=== PATIENT | female | born 1955 | race Caucasian/White ===

== ENCOUNTER 2023-12-28 12:56 | Outpatient (AMB) | payer MEDICARE, BC, SELFPAY ==
[2023-12-28 13:29] VITALS: BP 120/76; PULSE 84; RESP 19; TEMP 35.7; O2SAT 96; BMI 38.2
--- NOTE | 2023-12-28 13:29 | PD.ORTHCLVIS ---
Vital signs 12/28/23 13:29 Height 1.52 m Height Method Stated Weight 88.507 kg Weight Measurement Method Standing Scale BMI 38.2 BP 120/76 Blood Pressure Source Automatic Cuff Blood Pressure Location Right Upper Arm Position Sitting Respiration 19 Pulse 84 Pulse Source Monitor Temp 96.2 F L Temp Source Temporal Artery Scan Pulse Oximetry (%) 96 Oxygen Delivery Method Room Air Med/Allergies Allergies & Medications Allergies erythromycin base Adverse Reaction (Severe, Verified 12/28/23 13:30) Gastrointestinal Upset Subjective Visit Visit for: follow up visit Immunization / Flu Flu Vaccine in the Last 12 Months: No Flu Vaccine Exclusion Criteria: No Exclusion Criteria History of Present Illness Chief complaint: 4 WEEK FOLLOW UP Kasandra is a pleasant 68-year-old female with right knee pain and right knee arthritis. She had a fall 3 and half weeks ago which exacerbated the issues. She had a cortisone injection which did not help. She is on Plavix and cannot take anti-inflammatories. The pain is actually starting to increase again. Personal History Red flag PMH: none Pain Pain level (0-10): 0 Pain duration: CONSTANT Pain location: inside (medial), outside (lateral), anterior and posterior Pain quality: aching Pain timing: increases with activity Associated signs & symptoms: none Ambulatory data Ambulatory device: none Treatments Improvement with previous injections: No Improvement with PT: No Improvement with NSAIDS: no Review of Systems Review of Systems: All systems negative unless otherwise noted in HPI. Exam Exam Patient is in no acute distress and is cooperative with the examination today. Breathing is nonlabored. Patient has a normal mood and affect. Bilateral extremities were evaluated and demonstrates sensation intact to light touch. Palpable pedal pulses are present. No significant edema is present. Bilateral hips were examined. The patient has no pain with log roll of the hips. Internal rotation to 30 degrees and external rotation to 30 degrees is painless. Negative FADIR. Left knee was examined today. The left knee is in reasonable alignment. Range of motion from 0-120 degrees. Knee is stable to varus and valgus as well as AP translation with <5mm. Patient has a negative McMurrays. There is no pain with patellofemoral compression and no crepitus noted. The knee is nontender to palpation. The right knee was also examined. The right knee is in [varus] alignment. Range of motion from [0-115] degrees. Knee is stable to varus and valgus as well as AP translation with <5mm. Patient has a [negative] McMurrays. There is [no] pain with patellofemoral compression and [no] crepitus noted. The knee is [tender] to palpation [medially]. X-rays demonstrate joint space loss medially. There is arthritis pleasant. Assessment and Plan Problem List (1) Arthritis of right knee: Status: Acute Plan: Kasandra is a pleasant 68-year-old female with right knee pain and right knee arthritis. We discussed nonoperative and operative options. We would like to get weightbearing x-rays to better evaluate the severity. I think it is likely moderate arthritis. We discussed anti-inflammatories which she cannot take. We also discussed Tylenol and Voltaren cream. She would like a right knee cortisone injection. Recommend knee cortisone injection as patient would like to proceed with conservative treatment at this time. The risks and benefits of the procedure were reviewed with the patient and patient gave verbal consent to continue with the procedure. Procedure: performed by Dr. Leahy Using sterile technique the Right knee was thoroughly prepped with alcohol, and approximately 1 cc of Kenalog 40 mg/mL and 4 cc of 1% lidocaine was injected without resistance into the medial tibial femoral joint space. The patient tolerated the procedure. Advanced Care Planning Discussion Advance care planning discussed with:: patient Office Procedures GNS Level of Care Nursing/Assessment Patient Status: Established Patient Nursing Assessment/Reassesment: Medication Reconciliation, Update PMH in EMR and Vital Signs Coordination of Care: Complex Care and Chronic Disease 1-5, Education Complex Pt/Fam, Consent,records obtained, informed consent and Staff clarify orders Established Patient Charge Established Patient Point Assignment: 90 Established Patient Point Charge: EP Level 3 (80-115) Surgical Proc/IM SQ injection Major Surgical Procedure: Yes (KNEE INJECTION) Medication Given Medication Given Medication Given: Yes Documented Dose Given: 4 Route: Infiitration Medication Given Medication Given Medication Given: Yes Documented Dose Given: 1 Route: Infiitration Office Meds Xylocaine 10 mg/mL (1 %) injection solution Performing Provider: Carlos A Leahy MD Performing Location: [facility] Administered by: Carlos A Leahy MD on 12/28/23 13:51 Dose Route Admin Location Dispensed Lot Number Expiration Date 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 20 mL Infiltration 20 mL [id number] 11/04/26 57440-063-59 [employer] triamcinolone acetonide 40 mg/mL suspension for injection Performing Provider: Carlos A Leahy MD Performing Location: [facility] Administered by: Carlos A Leahy MD on 12/28/23 13:51 Dose Route Admin Location Dispensed Lot Number Expiration Date 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 40 mg Infiltration 1 mL [id number] 10/04/25 [address]-4 [employer] Past Medical History Past Medical History Have you ever been diagnosed with any of the following: Neurological Problems Seizures: No Migraine: Yes Cardiology Problems Angina: Yes Coronary Artery Disease: Yes Congestive Heart Failure: No Hypertension: Yes Respiratory Problems Chronic Obstructive Pulmonary Disease (COPD): No Asthma: Yes Bronchitis: Yes Pneumonia: Yes Sleep Apnea: Yes (Pt stated it's not a problem when she sleeps upright) Smoking: No Smoking Exposure: No Stomache/Intestinal Problems Gastroesophageal Reflux Disease: Yes Genital/Urinary Problems Renal Disease: No Reproductive Problems Previous Pregnancies: No Endocrine Problems Diabetes Mellitus Type 1: No Diabetes Mellitus Type 2: Yes Blood Problems Sickle Cell Disease: No Clotting Problems: No Psychologic Problems Depression: No Anxiety: No Other Problems Shingles: Yes Blood Transfusions: No Anesthesia Reactions: No Organ Transplant: No Chicken Pox: Yes Measles: No Mumps: No Cancer: No
== END 2023-12-28 13:57 | disposition home or self-care (01) ==
LOC: HODSRG 12:56
PROVIDERS: PCP Nurse Practitioner Family; Referring Provider Nurse Practitioner Family; Supervising Provider Orthopaedic Surgery Adult Reconstructive Orthopaedic Surgery; Visit Provider Orthopaedic Surgery Adult Reconstructive Orthopaedic Surgery
DX: M17.11 Unilateral primary osteoarthritis, right knee (principal); M25.561 Pain in right knee; I10 Essential (primary) hypertension; I25.10 Atherosclerotic heart disease of native coronary artery without angina pectoris
CPT/HCPCS: 20610; 99213; J3301; J3490; G0463

== ENCOUNTER → 2024-01-26 | Outpatient (CLI) | payer MEDICARE, BC, SELFPAY ==
[2024-01-26 11:36] LABS: Basophils # (Auto) 0.1 Thou/mm3 (0.0-0.2); Basophils % (Auto) 1 % (0-2.5); Eosinophils # (Auto) 0.5 Thou/mm3 (0.0-0.5); Eosinophils % (Auto) 6 % (0-10); Hematocrit 41.2 % (36.0-46.0); Hemoglobin 13.4 g/dL (12.0-16.0); Immature Granulocytes % (Auto) 0 % (0-0); Immature Granulocytes Auto 0.02 Thou/mm3 (0.00-0.00); Lymphocytes # (Auto) 1.7 Thou/mm3 (1.0-4.8); Lymphocytes % (Auto) 18 % (10-50); Mean Corpuscular HGB Conc 32.5 g/dl (31.0-37.0); Mean Corpuscular Volume 89 fL (80-100); Monocytes # (Auto) 0.8 Thou/mm3 (0.0-0.8); Monocytes % (Auto) 8 % (0-12); Neutrophils % (Auto) 67 % (37-80); Nucleated Red Blood Cell % 0 /100 WBC (0); Platelet Count 311 Thou/mm3 (140-440); RDW Standard Deviation 42.1 fL (36.4-46.3); Red Blood Count 4.62 Miln/mm3 (4.00-5.20)
[2024-01-26 11:47] LABS: Glucose Estimated Average 134 mg/dL (80-131); Hemoglobin A1C 6.3 % Hgb (4.8-6.0)
[2024-01-26 11:56] LABS: Alanine Aminotransferase 34 U/L (10-49); Albumin, Serum 4.8 gm/dL (3.4-4.8); Albumin/Globulin Ratio 2.1 (1.2-2.2); Alkaline Phosphatase 67 U/L (46-116); Anion Gap 7 (7-16); Aspartate Amino Transferase 28 U/L (0-34); BUN/Creatinine Ratio 26 Ratio (12-20); Bilirubin,Total 0.5 mg/dL (0.3-1.2); Blood Urea Nitrogen 31 mg/dL (9-23); Calcium 9.8 mg/dL (8.3-10.6); Calcium (Corrected) 9.8 mg/dL (8.5-10.1); Carbon Dioxide 26.4 mMol/L (20.0-31.0); Cardiac Risk Estimate 2.5 RATIO (3.7-5.6); Chloride 101 mMol/L (98-107); Cholesterol 110 mg/dL (132-200); Creatinine (Component) 1.2 mg/dL (0.6-1.3); Globulin 2.3 gm/dL (2.3-3.5); Glucose 115 mg/dL (74-106); HDL Cholesterol 44 mg/dL (40-60); LDL Cholesterol,Calculated 33 mg/dL (0-130); Osmolality,Calculated 275 (275-295); Potassium 4.8 mMol/L (3.4-5.1); Sodium 134 mMol/L (136-145); Total Protein 7.1 gm/dL (5.7-8.2); Triglycerides 164 mg/dL (30-150); eGFR 49 See Note
[2024-01-26 12:11] LABS: Creatinine MALB Rnd Ur 36 mg/dL (30-125); Microalbumin, Random Urine < 3 mg/L (0-300)
== END | disposition home or self-care (01) ==
LOC: COPL 10:08
PROVIDERS: PCP Nurse Practitioner Family; Referring Provider Internal Medicine Endocrinology, Diabetes & Metabolism; Visit Provider Internal Medicine Endocrinology, Diabetes & Metabolism
DX: E11.42 Type 2 diabetes mellitus with diabetic polyneuropathy (principal)
CPT/HCPCS: 36415; 80053; 80061; 82043; 82570; 83036; 85025

== ENCOUNTER 2024-02-08 13:50 | Outpatient (AMB) | payer MEDICARE, BC, SELFPAY ==
--- NOTE | 2024-02-08 14:29 | ORTHONT_ITS ---
Vital signs 02/08/24 14:31 Height 1.52 m Height Method Stated Weight 88.167 kg Weight Measurement Method Standing Scale BMI 38.1 BP 140/82 H Blood Pressure Source Automatic Cuff Blood Pressure Location Right Upper Arm Position Sitting Respiration 18 Pulse 85 Pulse Source Monitor Temp 97.8 F Temp Source Temporal Artery Scan Pulse Oximetry (%) 94 L Oxygen Delivery Method Room Air Med/Allergies Allergies & Medications Allergies erythromycin base Adverse Reaction (Severe, Verified 02/08/24 14:33) Gastrointestinal Upset Medication Reconciliation metoprolol succinate 25 mg tablet,extended release 24 hr (Toprol XL) 25 mg PO QDAY ##0 01/08/15 [History Confirmed 02/08/24] multivitamin (Tab-A-Roland tablet) 1 tab PO QDAY SUPPLEMENT ##0 11/15/15 [History Confirmed 02/08/24] montelukast 10 mg tablet (Singulair) 10 mg PO HS 06/17/17 [History Confirmed 02/08/24] amlodipine 5 mg-benazepril 40 mg capsule 1 cap PO QDAY 11/11/21 [History Confirmed 02/08/24] atorvastatin 80 mg tablet 1 tab PO HS 11/11/21 [History Confirmed 02/08/24] clopidogrel 75 mg tablet 1 tab PO QDAY 11/11/21 [History Confirmed 02/08/24] fluticasone propionate 110 mcg/actuation HFA aerosol inhaler (Flovent HFA) 2 puff inhalation QDAY PRN Wheezing 11/11/21 [History Confirmed 02/08/24] levocetirizine 5 mg tablet 5 mg PO QDAY 11/11/21 [History Confirmed 02/08/24] dapagliflozin propanediol 10 mg tablet (Farxiga) 1 tab PO DAILY 12/09/21 [History Confirmed 02/08/24] metformin 500 mg tablet,extended release 24 hr 1 tab PO TID 12/09/21 [History Confirmed 02/08/24] furosemide 40 mg tablet 40 mg PO QDAY 12/01/22 [History Confirmed 02/08/24] gabapentin 400 mg capsule 400 mg PO TID 12/01/22 [History Confirmed 11/02/23] cyclosporine 0.05 % eye drops in a dropperette (Restasis) 1 drp ophthalmic (eye) BID 03/04/23 [History Confirmed 02/08/24] fluticasone 250 mcg-salmeterol 50 mcg/dose blistr powdr for inhalation (Advair Diskus) 1 inh inhalation BID 03/04/23 [History Confirmed 02/08/24] insulin glargine U-300 conc 300 unit/mL (3 mL) subcutaneous pen (Toujeo Max U- 300 SoloStar) 12 unit subcut QDAY 03/04/23 [History Confirmed 02/08/24] tramadol 50 mg tablet 50 mg PO BID PRN pain #14 tabs 08/11/23 [Rx Confirmed 02/08/24] ondansetron 4 mg disintegrating tablet 4 mg PO Q8H PRN nausea and vomiting #10 tabs 12/01/23 [Rx Confirmed 02/08/24] Subjective Visit Visit for: follow up visit Immunization / Flu Flu Vaccine in the Last 12 Months: No Flu Vaccine Exclusion Criteria: No Exclusion Criteria History of Present Illness Chief complaint: 4 WEEK FOLLOW UP Kasandra is a pleasant 68-year-old female with right knee pain and right knee arthritis. She had a fall 3 and half weeks ago which exacerbated the issues. She had a cortisone injection which did not help. She is on Plavix and cannot take anti-inflammatories. The pain is actually starting to increase again. Personal History Red flag PMH: none Pain Pain level (0-10): 0 Pain duration: CONSTANT Pain location: inside (medial), outside (lateral), anterior and posterior Pain quality: aching Pain timing: increases with activity Associated signs & symptoms: none Ambulatory data Ambulatory device: none Treatments Improvement with previous injections: No Improvement with PT: No Improvement with NSAIDS: no Review of Systems Review of Systems: All systems negative unless otherwise noted in HPI. Exam Exam Patient is in no acute distress and is cooperative with the examination today. Breathing is nonlabored. Patient has a normal mood and affect. Bilateral extremities were evaluated and demonstrates sensation intact to light touch. Palpable pedal pulses are present. No significant edema is present. Bilateral hips were examined. The patient has no pain with log roll of the hips. Internal rotation to 30 degrees and external rotation to 30 degrees is painless. Negative FADIR. Left knee was examined today. The left knee is in reasonable alignment. Range of motion from 0-120 degrees. Knee is stable to varus and valgus as well as AP translation with <5mm. Patient has a negative McMurrays. There is no pain with patellofemoral compression and no crepitus noted. The knee is nontender to palpation. The right knee was also examined. The right knee is in [varus] alignment. Range of motion from [0-115] degrees. Knee is stable to varus and valgus as well as AP translation with <5mm. Patient has a [negative] McMurrays. There is [no] pain with patellofemoral compression and [no] crepitus noted. The knee is [tender] to palpation [medially]. X-rays demonstrate joint space loss medially. There is arthritis pleasant. Assessment and Plan Problem List (1) Arthritis of right knee: Status: Acute Plan: Kasandra is a pleasant 68-year-old female with right knee pain and right knee arthritis. We discussed nonoperative and operative options. We would like to get weightbearing x-rays to better evaluate the severity. I think it is likely moderate arthritis. We discussed anti-inflammatories which she cannot take. We also discussed Tylenol and Voltaren cream. She is doing very well from the last injection Advanced Care Planning Discussion Advance care planning discussed with:: patient Office Procedures GNS Level of Care Nursing/Assessment Patient Status: Established Patient Nursing Assessment/Reassesment: Medication Reconciliation, Update PMH in EMR and Vital Signs Coordination of Care: Complex Care and Chronic Disease 1-5, Education Complex Pt/Fam, Consent,records obtained, informed consent, Results/Orders obtained and Staff clarify orders Established Patient Charge Established Patient Point Assignment: 95 Established Patient Point Charge: EP Level 3 (80-115) Past Medical History Past Medical History Have you ever been diagnosed with any of the following: Neurological Problems Seizures: No Migraine: Yes Cardiology Problems Angina: Yes Coronary Artery Disease: Yes Congestive Heart Failure: No Hypertension: Yes Respiratory Problems Chronic Obstructive Pulmonary Disease (COPD): No Asthma: Yes Bronchitis: Yes Pneumonia: Yes Sleep Apnea: Yes (Pt stated it's not a problem when she sleeps upright) Smoking: No Smoking Exposure: No Stomache/Intestinal Problems Gastroesophageal Reflux Disease: Yes Genital/Urinary Problems Renal Disease: No Reproductive Problems Previous Pregnancies: No Endocrine Problems Diabetes Mellitus Type 1: No Diabetes Mellitus Type 2: Yes Blood Problems Sickle Cell Disease: No Clotting Problems: No Psychologic Problems Depression: No Anxiety: No Other Problems Shingles: Yes Blood Transfusions: No Anesthesia Reactions: No Organ Transplant: No Chicken Pox: Yes Measles: No Mumps: No Cancer: No
[2024-02-08 14:31] VITALS: BP 140/82; PULSE 85; RESP 18; TEMP 36.6; O2SAT 94; BMI 38.1
== END 2024-02-08 14:37 | disposition home or self-care (01) ==
LOC: HODSRG 13:50
PROVIDERS: Supervising Provider Orthopaedic Surgery Adult Reconstructive Orthopaedic Surgery; Visit Provider Orthopaedic Surgery Adult Reconstructive Orthopaedic Surgery
DX: M17.11 Unilateral primary osteoarthritis, right knee (principal); M25.561 Pain in right knee; I10 Essential (primary) hypertension; I25.10 Atherosclerotic heart disease of native coronary artery without angina pectoris
CPT/HCPCS: 99213; G0463

== ENCOUNTER 2024-02-24 08:45 | Outpatient (AMB) | payer MEDICARE, BC, SELFPAY ==
[2024-02-24 09:20] VITALS: BP 142/82; PULSE 79; RESP 16; TEMP 35.7; O2SAT 95; BMI 42.4
--- NOTE | 2024-02-24 09:20 | RHCORTHONT_ITS ---
Vital signs 02/24/24 09:20 Height 1.45 m Height Method Stated Weight 88.904 kg Weight Measurement Method Standing Scale BMI 42.4 BP 142/82 H Blood Pressure Source Automatic Cuff Blood Pressure Location Right Upper Arm Position Sitting Respiration 16 Pulse 79 Pulse Source Monitor Temp 96.2 F L Temp Source Temporal Artery Scan Pulse Oximetry (%) 95 Oxygen Delivery Method Room Air Med/Allergies Allergies & Medications Allergies erythromycin base Adverse Reaction (Severe, Verified 02/24/24 09:24) Gastrointestinal Upset Medication Reconciliation metoprolol succinate 25 mg tablet,extended release 24 hr (Toprol XL) 25 mg PO QDAY ##0 01/08/15 [History Confirmed 02/24/24] multivitamin (Tab-A-Roland tablet) 1 tab PO QDAY SUPPLEMENT ##0 11/15/15 [History Confirmed 02/24/24] montelukast 10 mg tablet (Singulair) 10 mg PO HS 06/17/17 [History Confirmed 02/24/24] amlodipine 5 mg-benazepril 40 mg capsule 1 cap PO QDAY 11/11/21 [History Confirmed 02/24/24] atorvastatin 80 mg tablet 1 tab PO HS 11/11/21 [History Confirmed 02/24/24] clopidogrel 75 mg tablet 1 tab PO QDAY 11/11/21 [History Confirmed 02/24/24] fluticasone propionate 110 mcg/actuation HFA aerosol inhaler (Flovent HFA) 2 puff inhalation QDAY PRN Wheezing 11/11/21 [History Confirmed 02/24/24] levocetirizine 5 mg tablet 5 mg PO QDAY 11/11/21 [History Confirmed 02/24/24] dapagliflozin propanediol 10 mg tablet (Farxiga) 1 tab PO DAILY 12/09/21 [History Confirmed 02/24/24] metformin 500 mg tablet,extended release 24 hr 1 tab PO TID 12/09/21 [History Confirmed 02/24/24] furosemide 40 mg tablet 40 mg PO QDAY 12/01/22 [History Confirmed 02/24/24] gabapentin 400 mg capsule 400 mg PO TID 12/01/22 [History Confirmed 02/24/24] cyclosporine 0.05 % eye drops in a dropperette (Restasis) 1 drp ophthalmic (eye) BID 03/04/23 [History Confirmed 02/24/24] fluticasone 250 mcg-salmeterol 50 mcg/dose blistr powdr for inhalation (Advair Diskus) 1 inh inhalation BID 03/04/23 [History Confirmed 02/24/24] insulin glargine U-300 conc 300 unit/mL (3 mL) subcutaneous pen (Toujeo Max U- 300 SoloStar) 12 unit subcut QDAY 03/04/23 [History Confirmed 02/24/24] tramadol 50 mg tablet 50 mg PO BID PRN pain #14 tabs 08/11/23 [Rx Confirmed 02/24/24] ondansetron 4 mg disintegrating tablet 4 mg PO Q8H PRN nausea and vomiting #10 tabs 12/01/23 [Rx Confirmed 02/24/24] Exam Exam Patient is in no acute distress and is cooperative with the examination today. Breathing is nonlabored. Patient has a normal mood and affect. Bilateral extremities were evaluated and demonstrates sensation intact to light touch. Palpable pedal pulses are present. No significant edema is present. Bilateral hips were examined. The patient has no pain with log roll of the hips. Internal rotation to 30 degrees and external rotation to 30 degrees is painless. Negative FADIR. Left knee was examined today. The left knee is in reasonable alignment. Range of motion from 0-120 degrees. Knee is stable to varus and valgus as well as AP translation with <5mm. Patient has a negative McMurrays. There is no pain with patellofemoral compression and no crepitus noted. The knee is nontender to palpation. The right knee was also examined. The right knee is in [varus] alignment. Range of motion from [0-115] degrees. Knee is stable to varus and valgus as well as AP translation with <5mm. Patient has a [negative] McMurrays. There is [no] pain with patellofemoral compression and [no] crepitus noted. The knee is [tender] to palpation [medially]. X-rays demonstrate joint space loss medially. There is arthritis pleasant. Assessment and Plan Problem List (1) Arthritis of right knee: Status: Acute Plan: Kasandra is a pleasant 68-year-old female with right knee pain and right knee arthritis. We discussed nonoperative and operative options. Weight bearing xrays demonstrate moderate arthritis. Recommend knee cortisone injection as patient would like to proceed with conservative treatment at this time. The risks and benefits of the procedure we re reviewed with the patient and patient gave verbal consent to continue with the procedure. Procedure: performed by Dr. Leahy Using sterile technique the Right knee was thoroughly prepped with alcohol, and approximately 1 cc of Kenalog 40 mg/mL and 4 cc of 1% lidocaine was injected without resistance into the medial tibial femoral joint space. The patient tolerated the procedure. Advanced Care Planning Discussion Advance care planning discussed with:: patient Office Procedures GNS Level of Care Nursing/Assessment Patient Status: Established Patient Nursing Assessment/Reassesment: Medication Reconciliation, Update PMH in EMR and Vital Signs Coordination of Care: Complex Care and Chronic Disease 1-5 and Education Complex Pt/Fam Established Patient Charge Established Patient Point Assignment: 75 Established Patient Point Charge: EP Level 2 (40-75) Surgical Proc/IM SQ injection Major Surgical Procedure: Yes (knee injection ) Medication Given Medication Given Medication Given: Yes Documented Dose Given: 4 Route: Infiitration Medication Given Medication Given Medication Given: Yes Documented Dose Given: 1 Route: Infiitration Office Meds Xylocaine 10 mg/mL (1 %) injection solution Performing Provider: Carlos A Leahy MD Performing Location: [facility] Administered by: Carlos A Leahy MD on 02/24/24 09:48 Dose Route Admin Location Dispensed Lot Number Expiration Date [facility] [employer] 20 mL Infiltration 20 mL [id number] 11/04/26 60755-880-80 [facility] triamcinolone acetonide 40 mg/mL suspension for injection Performing Provider: Carlos A Leahy MD Performing Location: [facility] Administered by: Carlos A Leahy MD on 02/24/24 09:48 Dose Route Admin Location Dispensed Lot Number Expiration Date [facility] [employer] 40 mg Infiltration 1 mL [id number] 08/04/25 3347-1355-41 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 Intake Visit Data Collection New Patient or Established: Established Patient (seen at [facility] within 3 years) Reason for Visit:: right knee pain Seen by Clinical Staff ONLY (RN/MA): No Verbal consent obtained for Telemed visit?: No Labor Conciliator Required: No Hx Now: No Do You Feel Safe at Home: Yes Questionairres Past Medical History Past Medical History Have you ever been diagnosed with any of the following: Neurological Problems Seizures: No Migraine: Yes Cardiology Problems Angina: Yes Coronary Artery Disease: Yes Congestive Heart Failure: No Hypertension: Yes Respiratory Problems Chronic Obstructive Pulmonary Disease (COPD): No Asthma: Yes Bronchitis: Yes Pneumonia: Yes Sleep Apnea: Yes (Pt stated it's not a problem when she sleeps upright) Smoking: No Smoking Exposure: No Stomache/Intestinal Problems Gastroesophageal Reflux Disease: Yes Genital/Urinary Problems Renal Disease: No Reproductive Problems Previous Pregnancies: No Endocrine Problems Diabetes Mellitus Type 1: No Diabetes Mellitus Type 2: Yes Blood Problems Sickle Cell Disease: No Clotting Problems: No Psychologic Problems Depression: No Anxiety: No Other Problems Shingles: Yes Blood Transfusions: No Anesthesia Reactions: No Organ Transplant: No Chicken Pox: Yes Measles: No Mumps: No Cancer: No Subjective Visit Visit for: follow up visit and knee Immunization / Flu Flu Vaccine in the Last 12 Months: Yes Flu Vaccine Exclusion Criteria: Already Received History of Present Illness Chief complaint: right knee pain Date of injury / onset of symptoms: 02/16/2024 Patient is 68-year-old female even treated for moderate arthritis. The arthritis is of moderate severity and she is tried anti-inflammatories injections. The injections have worked well and she would like another 1 today. Pain Pain level (0-10): 10 Pain duration: constant Pain location: inside (medial), outside (lateral), anterior and posterior Pain quality: sharp and aching Pain timing: other (specify) (after walking for a period of time) Associated signs & symptoms: none Ambulatory data Ambulatory device: none Treatments Improvement with NSAIDS: n/a Review of Systems Review of Systems: All systems negative unless otherwise noted in HPI.
== END 2024-02-24 10:00 | disposition home or self-care (01) ==
LOC: HODSRG 08:45
PROVIDERS: PCP Nurse Practitioner Family; Referring Provider Nurse Practitioner Family; Supervising Provider Orthopaedic Surgery Adult Reconstructive Orthopaedic Surgery; Visit Provider Orthopaedic Surgery Adult Reconstructive Orthopaedic Surgery
DX: M17.11 Unilateral primary osteoarthritis, right knee (principal); M25.561 Pain in right knee; I10 Essential (primary) hypertension; I25.10 Atherosclerotic heart disease of native coronary artery without angina pectoris; K21.9 Gastro-esophageal reflux disease without esophagitis; E11.9 Type 2 diabetes mellitus without complications
CPT/HCPCS: 20610; 99212; J3301; J3490; G0463

== ENCOUNTER → 2024-03-21 | Outpatient (CLI) | payer MEDICARE, BC, SELFPAY ==
[2024-03-21 16:29] LABS: Basophils # (Auto) 0.1 Thou/mm3 (0.0-0.2); Basophils % (Auto) 1 % (0-2.5); Eosinophils # (Auto) 0.5 Thou/mm3 (0.0-0.5); Eosinophils % (Auto) 5 % (0-10); Hematocrit 38.9 % (36.0-46.0); Hemoglobin 12.8 g/dL (12.0-16.0); Immature Granulocytes % (Auto) 1 % (0-0); Immature Granulocytes Auto 0.05 Thou/mm3 (0.00-0.00); Lymphocytes # (Auto) 1.5 Thou/mm3 (1.0-4.8); Lymphocytes % (Auto) 16 % (10-50); Mean Corpuscular HGB Conc 32.9 g/dl (31.0-37.0); Mean Corpuscular Hemoglobin 28.8 pg (25.0-35.0); Mean Corpuscular Volume 87 fL (80-100); Monocytes # (Auto) 0.9 Thou/mm3 (0.0-0.8); Monocytes % (Auto) 9 % (0-12); Neutrophils # (Auto) 6.7 Thou/mm3 (1.8-7.7); Neutrophils % (Auto) 69 % (37-80); Nucleated Red Blood Cell % 0 /100 WBC (0); Platelet Count 321 Thou/mm3 (140-440); RDW Standard Deviation 44.8 fL (36.4-46.3); Red Blood Count 4.45 Miln/mm3 (4.00-5.20); White Blood Count 9.8 Thou/mm3 (3.6-11.0)
[2024-03-21 16:53] LABS: Alanine Aminotransferase 22 U/L (10-49); Albumin, Serum 4.6 gm/dL (3.4-4.8); Albumin/Globulin Ratio 1.8 (1.2-2.2); Alkaline Phosphatase 72 U/L (46-116); Anion Gap 10 (7-16); Aspartate Amino Transferase 14 U/L (0-34); BUN/Creatinine Ratio 17 Ratio (12-20); Bilirubin,Total 0.3 mg/dL (0.3-1.2); Blood Urea Nitrogen 22 mg/dL (9-23); Calcium 9.5 mg/dL (8.3-10.6); Calcium (Corrected) 9.5 mg/dL (8.5-10.1); Carbon Dioxide 26.8 mMol/L (20.0-31.0); Chloride 105 mMol/L (98-107); Creatinine (Component) 1.3 mg/dL (0.6-1.3); Globulin 2.6 gm/dL (2.3-3.5); Glucose 116 mg/dL (74-106); Osmolality,Calculated 287 (275-295); Potassium 4.3 mMol/L (3.4-5.1); Sodium 142 mMol/L (136-145); Total Protein 7.2 gm/dL (5.7-8.2); eGFR 45 See Note
[2024-03-21 18:08] LABS: Urea Breath Test Negative (Negative)
[2024-03-22 09:27] LABS: Clostridium Difficile PCR Negative (Negative)
== END | disposition home or self-care (01) ==
LOC: COPL 14:42
PROVIDERS: PCP Family Medicine; Referring Provider Nurse Practitioner Family; Visit Provider Nurse Practitioner Family
DX: R19.7 Diarrhea, unspecified (principal)
CPT/HCPCS: 36415; 80053; 83013; 83014; 85025; 87015; 87045; 87046; 87177; 87209; 87493; 87899

== ENCOUNTER → 2024-03-31 | Outpatient (CLI) | payer MEDICARE, BC, SELFPAY ==
--- NOTE | 2024-03-31 10:00 | XR_ITS ---
Examination: Screening digital mammography, bilateral Computer aided detection 3-D breast Tomosynthesis, bilateral Date and time of exam: March 31, 2024 1047 hours Compared to mammograms dating to February 10, 2019 Indication: Screening Technique: Nonmagnified MLO, CC views of the breasts to been obtained, reconstructed from 3-D Tomosynthesis images. R2 computer aided detection program utilized for evaluation of suspicious masses and/or abnormal calcifications. 3-D Tomosynthesis images obtained. Findings: Scattered areas of fibroglandular density. Breast biopsy marker 12:00 position left breast Benign calcifications. No interval suspicious masses Impression: BI-RADS category II: Benign Findings. Recommend 1 year follow-up mammogram.
== END | disposition home or self-care (01) ==
LOC: CDIM 10:35
PROVIDERS: PCP Family Medicine; Referring Provider Nurse Practitioner Family; Visit Provider Nurse Practitioner Family
DX: Z12.31 Encounter for screening mammogram for malignant neoplasm of breast (principal); R92.323 Mammographic fibroglandular density, bilateral breasts; R92.1 Mammographic calcification found on diagnostic imaging of breast
CPT/HCPCS: 77063; 77067

== ENCOUNTER → 2024-05-05 | Outpatient (CLI) | payer MEDICARE, BC, SELFPAY ==
--- NOTE | 2024-05-05 15:35 | XR_ITS ---
Examination: Right knee 4 views Technique one AP oblique lateral axial right knee 4 views Exam date and time: April 27, 2024 1547 hrs. Indications: Right knee pain after falling beginning one month ago. Findings: No acute fracture No patellar dislocation Moderate tricompartment osteoarthritis Impression: No acute fracture
== END | disposition home or self-care (01) ==
LOC: CDIM 15:31
PROVIDERS: Referring Provider Orthopaedic Surgery Adult Reconstructive Orthopaedic Surgery; Visit Provider Orthopaedic Surgery Adult Reconstructive Orthopaedic Surgery
DX: M17.11 Unilateral primary osteoarthritis, right knee (principal)
CPT/HCPCS: 73564

== ENCOUNTER 2024-05-18 08:51 | Outpatient (AMB) | payer MEDICARE, BC, SELFPAY ==
--- NOTE | 2024-05-18 09:23 | ORTHONT_ITS ---
Vital signs 05/18/24 09:30 Height 1.45 m Height Method Stated Weight 89.613 kg Weight Measurement Method Standing Scale BMI 42.6 BP 139/81 H Blood Pressure Source Automatic Cuff Blood Pressure Location Left Upper Arm Position Sitting Respiration 18 Pulse 83 Pulse Source Monitor Temp 97.3 F Temp Source Temporal Artery Scan Pulse Oximetry (%) 97 Oxygen Delivery Method Room Air Med/Allergies Allergies & Medications Allergies erythromycin base Adverse Reaction (Severe, Verified 05/18/24 09:30) Gastrointestinal Upset Medication Reconciliation metoprolol succinate 25 mg tablet,extended release 24 hr (Toprol XL) 25 mg PO QDAY ##0 01/08/15 [History Confirmed 05/18/24] multivitamin (Tab-A-Roland tablet) 1 tab PO QDAY SUPPLEMENT ##0 11/15/15 [History Confirmed 05/18/24] montelukast 10 mg tablet (Singulair) 10 mg PO HS 06/17/17 [History Confirmed 05/18/24] amlodipine 5 mg-benazepril 40 mg capsule 1 cap PO QDAY 11/11/21 [History Confirmed 05/18/24] atorvastatin 80 mg tablet 1 tab PO HS 11/11/21 [History Confirmed 05/18/24] clopidogrel 75 mg tablet 1 tab PO QDAY 11/11/21 [History Confirmed 05/18/24] Held on 03/05/23. Instructions: Resume on 03/06/23. fluticasone propionate 110 mcg/actuation HFA aerosol inhaler (Flovent HFA) 2 puff inhalation QDAY PRN Wheezing 11/11/21 [History Confirmed 05/18/24] levocetirizine 5 mg tablet 5 mg PO QDAY 11/11/21 [History Confirmed 05/18/24] dapagliflozin propanediol 10 mg tablet (Farxiga) 1 tab PO DAILY 12/09/21 [History Confirmed 05/18/24] metformin 500 mg tablet,extended release 24 hr 1 tab PO TID 12/09/21 [History Confirmed 05/18/24] furosemide 40 mg tablet 40 mg PO QDAY 12/01/22 [History Confirmed 05/18/24] gabapentin 400 mg capsule 400 mg PO TID 12/01/22 [History Confirmed 05/18/24] cyclosporine 0.05 % eye drops in a dropperette (Restasis) 1 drp ophthalmic (eye) BID 03/04/23 [History Confirmed 05/18/24] fluticasone 250 mcg-salmeterol 50 mcg/dose blistr powdr for inhalation (Advair Diskus) 1 inh inhalation BID 03/04/23 [History Confirmed 05/18/24] insulin glargine U-300 conc 300 unit/mL (3 mL) subcutaneous pen (Toujeo Max U- 300 SoloStar) 12 unit subcut QDAY 03/04/23 [History Confirmed 05/18/24] tramadol 50 mg tablet 50 mg PO BID PRN pain #14 tabs 08/11/23 [Rx Confirmed 05/18/24] ondansetron 4 mg disintegrating tablet 4 mg PO Q8H PRN nausea and vomiting #10 tabs 12/01/23 [Rx Confirmed 05/18/24] Exam Exam Patient is in no acute distress and is cooperative with the examination today. Breathing is nonlabored. Patient has a normal mood and affect. Bilateral extremities were evaluated and demonstrates sensation intact to light touch. Palpable pedal pulses are present. No significant edema is present. Bilateral hips were examined. The patient has no pain with log roll of the hips. Internal rotation to 30 degrees and external rotation to 30 degrees is painless. Negative FADIR. Left knee was examined today. The left knee is in reasonable alignment. Range of motion from 0-120 degrees. Knee is stable to varus and valgus as well as AP translation with <5mm. Patient has a negative McMurrays. There is no pain with patellofemoral compression and no crepitus noted. The knee is nontender to palpation. The right knee was also examined. The right knee is in [varus] alignment. Range of motion from [0-115] degrees. Knee is stable to varus and valgus as well as AP translation with <5mm. Patient has a [negative] McMurrays. There is [no] pain with patellofemoral compression and [no] crepitus noted. The knee is [tender] to palpation [medially]. X-rays demonstrate joint space loss medially. There is arthritis present. Assessment and Plan Problem List (1) Arthritis of right knee: Status: Acute Plan: Kasandra is a pleasant 69-year-old female with right knee pain and right knee arthritis. We discussed nonoperative and operative options. Weight bearing xrays demonstrate moderate arthritis. Recommend knee cortisone injection as patient would like to proceed with conservative treatment at this time. The risks and benefits of the procedure were reviewed with the patient and patient gave verbal consent to continue with the procedure. Procedure: performed by Dr. Leahy Using sterile technique the Right knee was thoroughly prepped with alcohol, and approximately 1 cc of Kenalog 40 mg/mL and 4 cc of 1% lidocaine was injected without resistance into the medial tibial femoral joint space. The patient tolerated the procedure. Advanced Care Planning Discussion Advance care planning discussed with:: patient Office Procedures GNS Level of Care Nursing/Assessment Patient Status: Established Patient Nursing Assessment/Reassesment: Medication Reconciliation, Update PMH in EMR and Vital Signs Coordination of Care: Complex Care and Chronic Disease 1-5, Education Complex Pt/Fam, Consent,records obtained, informed consent, Results/Orders obtained and Staff clarify orders Established Patient Charge Established Patient Point Assignment: 95 Established Patient Point Charge: EP Level 3 (80-115) Surgical Proc/IM SQ injection Major Surgical Procedure: Yes (RIGHT KNEE INJECTION) Medication Given Medication Given Medication Given: Yes Documented Dose Given: 4 Route: Infiitration Medication Given Medication Given Medication Given: Yes Documented Dose Given: 1 Route: Infiitration Office Meds Xylocaine 10 mg/mL (1 %) injection solution Performing Provider: Carlos A Leahy MD Performing Location: [facility] Administered by: Carlos A Leahy MD on 05/18/24 09:40 Dose Route Admin Location Dispensed Lot Number Expiration Date [facility] [employer] 20 mL Infiltration 20 mL [id number] 07/06/27 56387-053-25 [facility] triamcinolone acetonide 40 mg/mL suspension for injection Performing Provider: Carlos A Leahy MD Performing Location: [facility] Administered by: Carlos A Leahy MD on 05/18/24 09:40 Dose Route Admin Location Dispensed Lot Number Expiration Date [facility] [employer] 40 mg intra-articular KNEE 1 mL [id number] 11/04/25 1152-2549-02 [facility] [place] Intake Visit Data Collection New Patient or Established: Established Patient (seen at [facility] within 3 years) Reason for Visit:: XRAY RESULTS/KNEE INJ RIGHT Seen by Clinical Staff ONLY (RN/MA): No Radio/Tv Technician Required: No PCP or OBGYN visit in last 3 months: Yes Hx Now: No Do You Feel Safe at Home: Yes Authorities Contacted: N/A Questionairres Past Medical History Past Medical History Have you ever been diagnosed with any of the following: Neurological Problems Seizures: No Migraine: Yes Cardiology Problems Angina: Yes Coronary Artery Disease: Yes Congestive Heart Failure: No Hypertension: Yes Respiratory Problems Chronic Obstructive Pulmonary Disease (COPD): No Asthma: Yes Bronchitis: Yes Pneumonia: Yes Sleep Apnea: Yes (Pt stated it's not a problem when she sleeps upright) Smoking: No Smoking Exposure: No Stomache/Intestinal Problems Gastroesophageal Reflux Disease: Yes Genital/Urinary Problems Renal Disease: No Reproductive Problems Previous Pregnancies: No Endocrine Problems Diabetes Mellitus Type 1: No Diabetes Mellitus Type 2: Yes Blood Problems Sickle Cell Disease: No Clotting Problems: No Psychologic Problems Depression: No Anxiety: No Other Problems Shingles: Yes Blood Transfusions: No Anesthesia Reactions: No Organ Transplant: No Chicken Pox: Yes Measles: No Mumps: No Cancer: No Subjective Visit Visit for: follow up visit, knee and injections Immunization / Flu Flu Vaccine in the Last 12 Months: Yes Flu Vaccine Exclusion Criteria: Already Received History of Present Illness Chief complaint: right knee pain Date of injury / onset of symptoms: 02/16/2024 Patient is 68-year-old female even treated for moderate arthritis. The arthritis is of moderate severity and she has tried anti-inflammatories injections. The injections have worked well and she would like another round of injections today Pain Pain level (0-10): 10 Pain duration: constant Pain location: inside (medial) and anterior Pain quality: aching Pain timing: other (specify) (after walking for a period of time) Associated signs & symptoms: none Ambulatory data Ambulatory device: none Treatments Improvement with previous injections: No Improvement with PT: No Improvement with NSAIDS: no Review of Systems Review of Systems: All systems negative unless otherwise noted in HPI.
[2024-05-18 09:30] VITALS: BP 139/81; PULSE 83; RESP 18; TEMP 36.3; O2SAT 97; BMI 42.6
== END 2024-05-18 09:35 | disposition home or self-care (01) ==
LOC: HODSRG 08:51
PROVIDERS: PCP Family Medicine; Referring Provider Family Medicine; Supervising Provider Orthopaedic Surgery Adult Reconstructive Orthopaedic Surgery; Visit Provider Orthopaedic Surgery Adult Reconstructive Orthopaedic Surgery
DX: M17.11 Unilateral primary osteoarthritis, right knee (principal); I25.10 Atherosclerotic heart disease of native coronary artery without angina pectoris; I10 Essential (primary) hypertension; J45.909 Unspecified asthma, uncomplicated; G47.30 Sleep apnea, unspecified
CPT/HCPCS: 20610; 99213; J3301; J3490; G0463

== ENCOUNTER → 2024-05-23 | Outpatient (CLI) | payer MEDICARE, BC, SELFPAY ==
[2024-05-23 13:20] LABS: Basophils # (Auto) 0.1 Thou/mm3 (0.0-0.2); Basophils % (Auto) 1 % (0-2.5); Eosinophils # (Auto) 0.6 Thou/mm3 (0.0-0.5); Eosinophils % (Auto) 7 % (0-10); Hematocrit 39.3 % (36.0-46.0); Hemoglobin 12.7 g/dL (12.0-16.0); Immature Granulocytes % (Auto) 0 % (0-0); Immature Granulocytes Auto 0.03 Thou/mm3 (0.00-0.00); Lymphocytes # (Auto) 1.5 Thou/mm3 (1.0-4.8); Lymphocytes % (Auto) 17 % (10-50); Mean Corpuscular HGB Conc 32.3 g/dl (31.0-37.0); Mean Corpuscular Hemoglobin 28.3 pg (25.0-35.0); Mean Corpuscular Volume 88 fL (80-100); Monocytes # (Auto) 0.8 Thou/mm3 (0.0-0.8); Monocytes % (Auto) 10 % (0-12); Neutrophils # (Auto) 5.7 Thou/mm3 (1.8-7.7); Neutrophils % (Auto) 66 % (37-80); Nucleated Red Blood Cell % 0 /100 WBC (0); Platelet Count 294 Thou/mm3 (140-440); RDW Standard Deviation 43.3 fL (36.4-46.3); Red Blood Count 4.48 Miln/mm3 (4.00-5.20); White Blood Count 8.7 Thou/mm3 (3.6-11.0)
[2024-05-23 13:32] LABS: Glucose Estimated Average 180 mg/dL (80-131); Hemoglobin A1C 7.9 % Hgb (4.8-6.0)
[2024-05-23 13:34] LABS: Creatinine MALB Rnd Ur 70 mg/dL (30-125)
[2024-05-23 13:38] LABS: Alanine Aminotransferase 18 U/L (10-49); Albumin, Serum 4.3 gm/dL (3.4-4.8); Albumin/Globulin Ratio 1.9 (1.2-2.2); Alkaline Phosphatase 73 U/L (46-116); Anion Gap 10 (7-16); Aspartate Amino Transferase 26 U/L (0-34); BUN/Creatinine Ratio 21 Ratio (12-20); Bilirubin,Total 0.4 mg/dL (0.3-1.2); Blood Urea Nitrogen 25 mg/dL (9-23); Calcium 9.3 mg/dL (8.3-10.6); Calcium (Corrected) 9.3 mg/dL (8.5-10.1); Carbon Dioxide 24.5 mMol/L (20.0-31.0); Cardiac Risk Estimate 2.5 RATIO (3.7-5.6); Chloride 105 mMol/L (98-107); Cholesterol 127 mg/dL (132-200); Creatinine (Component) 1.2 mg/dL (0.6-1.3); Globulin 2.3 gm/dL (2.3-3.5); Glucose 140 mg/dL (74-106); HDL Cholesterol 50 mg/dL (40-60); LDL Cholesterol,Calculated 41 mg/dL (0-130); Osmolality,Calculated 283 (275-295); Sodium 139 mMol/L (136-145); Total Protein 6.6 gm/dL (5.7-8.2); Triglycerides 178 mg/dL (30-150); eGFR 49 See Note
[2024-05-23 14:39] LABS: Microalbumin, Random Urine < 3 mg/L (0-300)
== END | disposition home or self-care (01) ==
LOC: COPL 11:45
PROVIDERS: PCP Family Medicine; Referring Provider Internal Medicine Endocrinology, Diabetes & Metabolism; Visit Provider Internal Medicine Endocrinology, Diabetes & Metabolism
DX: E11.42 Type 2 diabetes mellitus with diabetic polyneuropathy (principal)
CPT/HCPCS: 36415; 80053; 80061; 82043; 82570; 83036; 85025

== ENCOUNTER 2024-09-14 09:42 | Outpatient (AMB) | payer MEDICARE, BC, SELFPAY ==
--- NOTE | 2024-09-14 09:56 | PD.ORTHCLVIS ---
Vital signs 09/14/24 09:57 Height 1.47 m Height Method Stated Weight 80.541 kg Weight Measurement Method Standing Scale BMI 37.0 BP 121/73 Blood Pressure Source Automatic Cuff Blood Pressure Location Right Upper Arm Position Sitting Respiration 18 Pulse 84 Pulse Source Monitor Temp 96.9 F Temp Source Temporal Artery Scan Pulse Oximetry (%) 97 Oxygen Delivery Method Room Air Med/Allergies Allergies & Medications Allergies erythromycin base Adverse Reaction (Severe, Verified 09/14/24 09:58) Gastrointestinal Upset Medication Reconciliation metoprolol succinate 25 mg tablet,extended release 24 hr (Toprol XL) 25 mg PO QDAY ##0 01/08/15 [History Confirmed 09/14/24] multivitamin (Tab-A-Roland tablet) 1 tab PO QDAY SUPPLEMENT ##0 11/15/15 [History Confirmed 09/14/24] montelukast 10 mg tablet (Singulair) 10 mg PO HS 06/17/17 [History Confirmed 09/14/24] amlodipine 5 mg-benazepril 40 mg capsule 1 cap PO QDAY 11/11/21 [History Confirmed 09/14/24] atorvastatin 80 mg tablet 1 tab PO HS 11/11/21 [History Confirmed 09/14/24] clopidogrel 75 mg tablet 1 tab PO QDAY 11/11/21 [History Confirmed 09/14/24] Held on 03/05/23. Instructions: Resume on 03/06/23. fluticasone propionate 110 mcg/actuation HFA aerosol inhaler (Flovent HFA) 2 puff inhalation QDAY PRN Wheezing 11/11/21 [History Confirmed 09/14/24] levocetirizine 5 mg tablet 5 mg PO QDAY 11/11/21 [History Confirmed 09/14/24] dapagliflozin propanediol 10 mg tablet (Farxiga) 1 tab PO DAILY 12/09/21 [History Confirmed 09/14/24] metformin 500 mg tablet,extended release 24 hr 1 tab PO TID 12/09/21 [History Confirmed 09/14/24] furosemide 40 mg tablet 40 mg PO QDAY 12/01/22 [History Confirmed 09/14/24] gabapentin 400 mg capsule 400 mg PO TID 12/01/22 [History Confirmed 09/14/24] cyclosporine 0.05 % eye drops in a dropperette (Restasis) 1 drp ophthalmic (eye) BID 03/04/23 [History Confirmed 09/14/24] fluticasone 250 mcg-salmeterol 50 mcg/dose blistr powdr for inhalation (Advair Diskus) 1 inh inhalation BID 03/04/23 [History Confirmed 09/14/24] tramadol 50 mg tablet 50 mg PO BID PRN pain #14 tabs 08/11/23 [Rx Confirmed 09/14/24] ondansetron 4 mg disintegrating tablet 4 mg PO Q8H PRN nausea and vomiting #10 tabs 12/01/23 [Rx Confirmed 09/14/24] Exam Exam Patient is in no acute distress and is cooperative with the examination today. Breathing is nonlabored. Patient has a normal mood and affect. Bilateral extremities were evaluated and demonstrates sensation intact to light touch. Palpable pedal pulses are present. No significant edema is present. Bilateral hips were examined. The patient has no pain with log roll of the hips. Internal rotation to 30 degrees and external rotation to 30 degrees is painless. Negative FADIR. Left knee was examined today. The left knee is in reasonable alignment. Range of motion from 0-120 degrees. Knee is stable to varus and valgus as well as AP translation with <5mm. Patient has a negative McMurrays. There is no pain with patellofemoral compression and no crepitus noted. The knee is nontender to palpation. The right knee was also examined. The right knee is in [varus] alignment. Range of motion from [0-115] degrees. Knee is stable to varus and valgus as well as AP translation with <5mm. Patient has a [negative] McMurrays. There is [no] pain with patellofemoral compression and [no] crepitus noted. The knee is [tender] to palpation [medially]. X-rays demonstrate joint space loss medially. There is arthritis present. Assessment and Plan Problem List (1) Arthritis of right knee: Status: Acute Plan: Kasandra is a pleasant 69-year-old female with right knee pain and right knee arthritis. We discussed nonoperative and operative options. She is doing well with conservative treatment and is continuing to lose weight. Advanced Care Planning Discussion Advance care planning discussed with:: patient Office Procedures GNS Level of Care Nursing/Assessment Patient Status: Established Patient Nursing Assessment/Reassesment: Medication Reconciliation, Update PMH in EMR and Vital Signs Coordination of Care: Complex Care and Chronic Disease 1-5, Consent,records obtained, informed consent, Lab and Imaging orders, Results/Orders obtained and Staff clarify orders Established Patient Charge Established Patient Point Assignment: 90 Established Patient Point Charge: EP Level 3 (80-115) MA Intake Visit Data Collection New Patient or Established: Established Patient (seen at [facility] within 3 years) Reason for Visit:: 3 MONTH KNEE INJECTION Seen by Clinical Staff ONLY (RN/MA): No Verbal consent obtained for Telemed visit?: No Shipping And Receiving Weigher Required: No PCP or OBGYN visit in last 3 months: Yes Hx Now: No Do You Feel Safe at Home: Yes Authorities Contacted: N/A Questionairres Past Medical History Past Medical History Have you ever been diagnosed with any of the following: Neurological Problems Seizures: No Migraine: Yes Cardiology Problems Angina: Yes Coronary Artery Disease: Yes Congestive Heart Failure: No Hypertension: Yes Respiratory Problems Chronic Obstructive Pulmonary Disease (COPD): No Asthma: Yes Bronchitis: Yes Pneumonia: Yes Sleep Apnea: Yes (Pt stated it's not a problem when she sleeps upright) Smoking: No Smoking Exposure: No Stomache/Intestinal Problems Gastroesophageal Reflux Disease: Yes Genital/Urinary Problems Renal Disease: No Reproductive Problems Previous Pregnancies: No Endocrine Problems Diabetes Mellitus Type 1: No Diabetes Mellitus Type 2: Yes Blood Problems Sickle Cell Disease: No Clotting Problems: No Psychologic Problems Depression: No Anxiety: No Other Problems Shingles: Yes Blood Transfusions: No Anesthesia Reactions: No Organ Transplant: No Chicken Pox: Yes Measles: No Mumps: No Cancer: No Subjective Visit Visit for: follow up visit and knee Immunization / Flu Flu Vaccine in the Last 12 Months: No Flu Vaccine Exclusion Criteria: No Exclusion Criteria History of Present Illness Chief complaint: KNEE INJECTION FOLLOW UP Date of injury / onset of symptoms: 02/16/2024 Patient is 68-year-old female even treated for moderate arthritis. The arthritis is of moderate severity and she has tried anti-inflammatories injections. The injections have worked well. She is doing well and wants to hold off on injections dfor now. Personal History Red flag PMH: none Pain Pain level (0-10): 2 Pain duration: COMES AND GOES Pain location: inside (medial), outside (lateral) and anterior Pain quality: dull and aching Pain timing: other (specify) (after walking for a period of time) Associated signs & symptoms: none Ambulatory data Ambulatory device: none Treatments Number of previous injections: 2 Improvement with previous injections: Yes Improvement with PT: No Improvement with NSAIDS: no Review of Systems Review of Systems: All systems negative unless otherwise noted in HPI.
[2024-09-14 09:57] VITALS: BP 121/73; PULSE 84; RESP 18; TEMP 36.1; O2SAT 97; BMI 37.0
== END 2024-09-14 10:33 | disposition home or self-care (01) ==
PROVIDERS: Supervising Provider Orthopaedic Surgery Adult Reconstructive Orthopaedic Surgery; Visit Provider Orthopaedic Surgery Adult Reconstructive Orthopaedic Surgery
DX: M17.11 Unilateral primary osteoarthritis, right knee (principal); M25.561 Pain in right knee; I10 Essential (primary) hypertension; G47.30 Sleep apnea, unspecified; K21.9 Gastro-esophageal reflux disease without esophagitis; E11.9 Type 2 diabetes mellitus without complications
CPT/HCPCS: 99213; G0463

== ENCOUNTER → 2024-09-15 | Outpatient (CLI) | payer MEDICARE, BC, SELFPAY ==
[2024-09-16 09:22] LABS: Clostridium Difficile PCR Negative (Negative)
== END | disposition home or self-care (01) ==
LOC: SLDO 14:58
PROVIDERS: Referring Provider Internal Medicine Endocrinology, Diabetes & Metabolism; Visit Provider Internal Medicine Endocrinology, Diabetes & Metabolism
DX: R19.7 Diarrhea, unspecified (principal)
CPT/HCPCS: 87493

== ENCOUNTER → 2024-09-26 | Outpatient (CLI) | payer MEDICARE, BC, SELFPAY ==
[2024-09-26 11:17] LABS: Basophils # (Auto) 0.1 Thou/mm3 (0.0-0.2); Basophils % (Auto) 1 % (0-2.5); Eosinophils # (Auto) 0.2 Thou/mm3 (0.0-0.5); Eosinophils % (Auto) 3 % (0-10); Hematocrit 41.8 % (36.0-46.0); Hemoglobin 13.7 g/dL (12.0-16.0); Immature Granulocytes Auto 0.03 Thou/mm3 (0.00-0.00); Lymphocytes # (Auto) 1.9 Thou/mm3 (1.0-4.8); Lymphocytes % (Auto) 23 % (10-50); Mean Corpuscular HGB Conc 32.8 g/dl (31.0-37.0); Mean Corpuscular Hemoglobin 28.7 pg (25.0-35.0); Mean Corpuscular Volume 87 fL (80-100); Monocytes # (Auto) 0.9 Thou/mm3 (0.0-0.8); Monocytes % (Auto) 10 % (0-12); Neutrophils # (Auto) 5.3 Thou/mm3 (1.8-7.7); Neutrophils % (Auto) 64 % (37-80); Nucleated Red Blood Cell # 0.00 Thou/mm3 (0.00-0.00); Nucleated Red Blood Cell % 0 /100 WBC (0); Platelet Count 332 Thou/mm3 (140-440); RDW Standard Deviation 43.7 fL (36.4-46.3); Red Blood Count 4.78 Miln/mm3 (4.00-5.20); White Blood Count 8.4 Thou/mm3 (3.6-11.0)
[2024-09-26 11:28] LABS: Glucose Estimated Average 114 mg/dL (80-131); Hemoglobin A1C 5.6 % Hgb (4.8-6.0)
[2024-09-26 11:37] LABS: Alanine Aminotransferase 21 U/L (10-49); Albumin, Serum 4.4 gm/dL (3.4-4.8); Albumin/Globulin Ratio 1.8 (1.2-2.2); Alkaline Phosphatase 58 U/L (46-116); Anion Gap 13 (7-16); Aspartate Amino Transferase 24 U/L (0-34); BUN/Creatinine Ratio 19 Ratio (12-20); Bilirubin,Total 0.5 mg/dL (0.3-1.2); Blood Urea Nitrogen 21 mg/dL (9-23); Calcium 9.2 mg/dL (8.3-10.6); Calcium (Corrected) 9.2 mg/dL (8.5-10.1); Carbon Dioxide 26.7 mMol/L (20.0-31.0); Cardiac Risk Estimate 2.2 RATIO (3.7-5.6); Chloride 103 mMol/L (98-107); Cholesterol 100 mg/dL (132-200); Creatinine (Component) 1.1 mg/dL (0.6-1.3); Globulin 2.4 gm/dL (2.3-3.5); Glucose 94 mg/dL (74-106); HDL Cholesterol 46 mg/dL (40-60); LDL Cholesterol,Calculated 24 mg/dL (0-130); Osmolality,Calculated 287 (275-295); Potassium 3.3 mMol/L (3.4-5.1); Sodium 143 mMol/L (136-145); Total Protein 6.8 gm/dL (5.7-8.2); Triglycerides 148 mg/dL (30-150); eGFR 54 See Note
[2024-09-26 11:45] LABS: Creatinine MALB Rnd Ur 126 mg/dL (30-125); Microalbumin Creat Ratio 10 mg/gCrea (<30); Microalbumin, Random Urine 13 mg/L (0-300)
== END | disposition home or self-care (01) ==
LOC: COPL 09:42
PROVIDERS: PCP Nurse Practitioner Family; Referring Provider Internal Medicine Endocrinology, Diabetes & Metabolism; Visit Provider Internal Medicine Endocrinology, Diabetes & Metabolism
DX: E11.42 Type 2 diabetes mellitus with diabetic polyneuropathy (principal)
CPT/HCPCS: 36415; 80053; 80061; 82043; 82570; 83036; 85025

== ENCOUNTER 2024-10-05 13:56 | Outpatient (AMB) | payer MEDICARE, BC, SELFPAY ==
--- NOTE | 2024-10-05 14:00 | PD.ORTHCLVIS ---
Vital signs 10/05/24 14:07 Height 1.47 m Height Method Measured Weight 80.286 kg Weight Measurement Method Standing Scale BMI 37.1 BP 126/68 Blood Pressure Source Automatic Cuff Blood Pressure Location Left Upper Arm Position Sitting Respiration 18 Pulse 82 Pulse Source Monitor Temp 97.8 F Temp Source Temporal Artery Scan Pulse Oximetry (%) 96 Oxygen Delivery Method Room Air Med/Allergies Allergies & Medications Allergies erythromycin base Adverse Reaction (Severe, Verified 10/05/24 14:08) Gastrointestinal Upset Medication Reconciliation metoprolol succinate 25 mg tablet,extended release 24 hr (Toprol XL) 25 mg PO QDAY ##0 01/08/15 [History Confirmed 10/05/24] multivitamin (Tab-A-Roland tablet) 1 tab PO QDAY SUPPLEMENT ##0 11/15/15 [History Confirmed 10/05/24] montelukast 10 mg tablet (Singulair) 10 mg PO HS 06/17/17 [History Confirmed 10/05/24] amlodipine 5 mg-benazepril 40 mg capsule 1 cap PO QDAY 11/11/21 [History Confirmed 10/05/24] atorvastatin 80 mg tablet 1 tab PO HS 11/11/21 [History Confirmed 10/05/24] clopidogrel 75 mg tablet 1 tab PO QDAY 11/11/21 [History Confirmed 10/05/24] Held on 03/05/23. Instructions: Resume on 03/06/23. fluticasone propionate 110 mcg/actuation HFA aerosol inhaler (Flovent HFA) 2 puff inhalation QDAY PRN Wheezing 11/11/21 [History Confirmed 10/05/24] levocetirizine 5 mg tablet 5 mg PO QDAY 11/11/21 [History Confirmed 10/05/24] dapagliflozin propanediol 10 mg tablet (Farxiga) 1 tab PO DAILY 12/09/21 [History Confirmed 10/05/24] metformin 500 mg tablet,extended release 24 hr 1 tab PO TID 12/09/21 [History Confirmed 10/05/24] furosemide 40 mg tablet 40 mg PO QDAY 12/01/22 [History Confirmed 10/05/24] gabapentin 400 mg capsule 400 mg PO TID 12/01/22 [History Confirmed 10/05/24] cyclosporine 0.05 % eye drops in a dropperette (Restasis) 1 drp ophthalmic (eye) BID 12/28/23 [History Confirmed 10/05/24] fluticasone 250 mcg-salmeterol 50 mcg/dose blistr powdr for inhalation (Advair Diskus) 1 inh inhalation BID 03/04/23 [History Confirmed 10/05/24] tramadol 50 mg tablet 50 mg PO BID PRN pain #14 tabs 08/11/23 [Rx Confirmed 10/05/24] ondansetron 4 mg disintegrating tablet 4 mg PO Q8H PRN nausea and vomiting #10 tabs 12/01/23 [Rx Confirmed 10/05/24] Exam Exam Patient is in no acute distress and is cooperative with the examination today. Breathing is nonlabored. Patient has a normal mood and affect. Bilateral extremities were evaluated and demonstrates sensation intact to light touch. Palpable pedal pulses are present. No significant edema is present. Bilateral hips were examined. The patient has no pain with log roll of the hips. Internal rotation to 30 degrees and external rotation to 30 degrees is painless. Negative FADIR. Left knee was examined today. The left knee is in reasonable alignment. Range of motion from 0-120 degrees. Knee is stable to varus and valgus as well as AP translation with <5mm. Patient has a negative McMurrays. There is no pain with patellofemoral compression and no crepitus noted. The knee is nontender to palpation. The right knee was also examined. The right knee is in [varus] alignment. Range of motion from [0-115] degrees. Knee is stable to varus and valgus as well as AP translation with <5mm. Patient has a [negative] McMurrays. There is [no] pain with patellofemoral compression and [no] crepitus noted. The knee is [tender] to palpation [medially]. X-rays demonstrate joint space loss medially. There is arthritis present. Assessment and Plan Problem List (1) Arthritis of right knee: Status: Acute Plan: Kasandra is a pleasant 69-year-old female with right knee pain and right knee arthritis. We discussed nonoperative and operative options. She is doing well with conservative treatment and is continuing to lose weight. Recommend knee cortisone injection as patient would like to proceed with conservative treatment at this time. The risks and benefits of the procedure were reviewed with the patient and patient gave verbal consent to continue with the procedure. Procedure: performed by Dr. Leahy Using sterile technique the Right knee was thoroughly prepped with alcohol, and approximately 1 cc of Depo-Medrol 80mg/mL and 4 cc of 0.2% ropivacaine was injected without resistance into the medial tibial femoral joint space. The patient tolerated the procedure. Advanced Care Planning Discussion Advance care planning discussed with:: patient Office Procedures GNS Level of Care Nursing/Assessment Patient Status: Established Patient Nursing Assessment/Reassesment: Medication Reconciliation, Update PMH in EMR and Vital Signs Coordination of Care: Complex Care and Chronic Disease 1-5, Education Complex Pt/Fam, Consent,records obtained, informed consent, Results/Orders obtained and Staff clarify orders Established Patient Charge Established Patient Point Assignment: 95 Established Patient Point Charge: EP Level 3 (80-115) Surgical Proc/IM SQ injection Major Surgical Procedure: Yes (KNEE INJECTION) Medication Given Medication Given Medication Given: Yes Documented Dose Given: 1 Route: Infiitration Medication Given Medication Given Medication Given: Yes Documented Dose Given: 4 Route: Infiitration Office Meds methylprednisolone acetate 80 mg/mL suspension for injection Performing Provider: Carlos A Leahy MD Performing Location: [facility] Administered by: Carlos A Leahy MD on 10/05/24 14:17 Dose Route Admin Location Dispensed Lot Number Expiration Date [facility] Community Service Officer Coordinator 80 mg intra-articular 1 mL [id number] 08/04/26 [address]-7 [employer] ropivacaine (PF) 2 mg/mL (0.2 %) injection solution Performing Provider: Carlos A Leahy MD Performing Location: [facility] Administered by: Carlos A Leahy MD on 10/05/24 14:17 Dose Route Admin Location Dispensed Lot Number Expiration Date [facility] Community Service Officer Coordinator 20 mL Infiltration 20 mL [id number] 01/04/26 80298-253-88 [facility] Intake Visit Data Collection New Patient or Established: Established Patient (seen at [facility] within 3 years) Reason for Visit:: RIGHT KNEE INJECTION Seen by Clinical Staff ONLY (RN/MA): No Boat Buffer Plastic Required: No PCP or OBGYN visit in last 3 months: Yes Hx Now: No Do You Feel Safe at Home: Yes Authorities Contacted: N/A Questionairres Past Medical History Past Medical History Have you ever been diagnosed with any of the following: Neurological Problems Seizures: No Migraine: Yes Cardiology Problems Angina: Yes Coronary Artery Disease: Yes Congestive Heart Failure: No Hypertension: Yes Respiratory Problems Chronic Obstructive Pulmonary Disease (COPD): No Asthma: Yes Bronchitis: Yes Pneumonia: Yes Sleep Apnea: Yes (Pt stated it's not a problem when she sleeps upright) Smoking: No Smoking Exposure: No Stomache/Intestinal Problems Gastroesophageal Reflux Disease: Yes Genital/Urinary Problems Renal Disease: No Reproductive Problems Previous Pregnancies: No Endocrine Problems Diabetes Mellitus Type 1: No Diabetes Mellitus Type 2: Yes Blood Problems Sickle Cell Disease: No Clotting Problems: No Psychologic Problems Depression: No Anxiety: No Other Problems Shingles: Yes Blood Transfusions: No Anesthesia Reactions: No Organ Transplant: No Chicken Pox: Yes Measles: No Mumps: No Cancer: No Subjective Visit Visit for: follow up visit and knee Immunization / Flu Flu Vaccine in the Last 12 Months: No Flu Vaccine Exclusion Criteria: No Exclusion Criteria History of Present Illness Chief complaint: RIGHT KNEE INJECTION Date of injury / onset of symptoms: 02/16/2024 Patient is 68-year-old female even treated for moderate arthritis. The arthritis is of moderate severity and she has tried anti-inflammatories injections. The injections have worked well. The injection has worn off and she would like to get a new injection as she is going on a cruise soon Personal History Red flag PMH: none BMI Counceling provided: Yes Pain Pain level (0-10): 2 Pain duration: COMES AND GOES Pain location: inside (medial) Pain quality: aching Pain timing: stairs Associated signs & symptoms: none Ambulatory data Ambulatory device: none Treatments Number of previous injections: 2 Improvement with previous injections: Yes Improvement with PT: No Improvement with NSAIDS: yes Review of Systems Review of Systems: All systems negative unless otherwise noted in HPI.
[2024-10-05 14:07] VITALS: BP 126/68; PULSE 82; RESP 18; TEMP 36.6; O2SAT 96; BMI 37.1
== END 2024-10-05 14:34 | disposition home or self-care (01) ==
LOC: HODSRG 13:56
PROVIDERS: PCP Family Medicine; Referring Provider Family Medicine; Supervising Provider Orthopaedic Surgery Adult Reconstructive Orthopaedic Surgery; Visit Provider Orthopaedic Surgery Adult Reconstructive Orthopaedic Surgery
DX: M17.11 Unilateral primary osteoarthritis, right knee (principal); M25.561 Pain in right knee; I10 Essential (primary) hypertension; I25.10 Atherosclerotic heart disease of native coronary artery without angina pectoris; K21.9 Gastro-esophageal reflux disease without esophagitis; E11.9 Type 2 diabetes mellitus without complications
CPT/HCPCS: 20610; 99213; J1010; J2795; G0463

== ENCOUNTER 2024-11-02 13:30 | Outpatient (AMB) | payer MEDICARE, BC, SELFPAY ==
--- NOTE | 2024-11-02 13:43 | ORTHONT_ITS ---
Vital signs 11/02/24 13:48 Height 1.45 m Height Method Measured Weight 172 lb 7 oz Weight Measurement Method Standing Scale BMI 37.2 BP 127/76 Blood Pressure Source Automatic Cuff Blood Pressure Location Left Upper Arm Position Sitting Respiration 20 Pulse 87 Pulse Source Monitor Temp 91.0 F L Temp Source Temporal Artery Scan Pulse Oximetry (%) 95 Oxygen Delivery Method Room Air Med/Allergies Allergies & Medications Allergies erythromycin base Adverse Reaction (Severe, Verified 11/02/24 13:49) Gastrointestinal Upset Medication Reconciliation metoprolol succinate 25 mg tablet,extended release 24 hr (Toprol XL) 25 mg PO QDAY ##0 01/08/15 [History Confirmed 11/02/24] multivitamin (Tab-A-Roland tablet) 1 tab PO QDAY SUPPLEMENT ##0 11/15/15 [History Confirmed 11/02/24] montelukast 10 mg tablet (Singulair) 10 mg PO HS 06/17/17 [History Confirmed 11/02/24] amlodipine 5 mg-benazepril 40 mg capsule 1 cap PO QDAY 11/11/21 [History Confirmed 11/02/24] atorvastatin 80 mg tablet 1 tab PO HS 11/11/21 [History Confirmed 11/02/24] clopidogrel 75 mg tablet 1 tab PO QDAY 11/11/21 [History Confirmed 11/02/24] Held on 03/05/23. Instructions: Resume on 03/06/23. fluticasone propionate 110 mcg/actuation HFA aerosol inhaler (Flovent HFA) 2 puff inhalation QDAY PRN Wheezing 11/11/21 [History Confirmed 11/02/24] levocetirizine 5 mg tablet 5 mg PO QDAY 11/11/21 [History Confirmed 11/02/24] dapagliflozin propanediol 10 mg tablet (Farxiga) 1 tab PO DAILY 12/09/21 [History Confirmed 11/02/24] metformin 500 mg tablet,extended release 24 hr 1 tab PO TID 12/09/21 [History Confirmed 11/02/24] furosemide 40 mg tablet 40 mg PO QDAY 12/01/22 [History Confirmed 11/02/24] gabapentin 400 mg capsule 400 mg PO TID 12/01/22 [History Confirmed 11/02/24] cyclosporine 0.05 % eye drops in a dropperette (Restasis) 1 drp ophthalmic (eye) BID 03/04/23 [History Confirmed 11/02/24] fluticasone 250 mcg-salmeterol 50 mcg/dose blistr powdr for inhalation (Advair Diskus) 1 inh inhalation BID 03/04/23 [History Confirmed 11/02/24] tramadol 50 mg tablet 50 mg PO BID PRN pain #14 tabs 08/11/23 [Rx Confirmed 11/02/24] ondansetron 4 mg disintegrating tablet 4 mg PO Q8H PRN nausea and vomiting #10 tabs 12/01/23 [Rx Confirmed 11/02/24] Exam Exam Patient is in no acute distress and is cooperative with the examination today. Breathing is nonlabored. Patient has a normal mood and affect. Bilateral extremities were evaluated and demonstrates sensation intact to light touch. Palpable pedal pulses are present. No significant edema is present. Bilateral hips were examined. The patient has no pain with log roll of the hips. Internal rotation to 30 degrees and external rotation to 30 degrees is painless. Negative FADIR. Left knee was examined today. The left knee is in reasonable alignment. Range of motion from 0-120 degrees. Knee is stable to varus and valgus as well as AP translation with <5mm. Patient has a negative McMurrays. There is no pain with patellofemoral compression and no crepitus noted. The knee is nontender to palpation. The right knee was also examined. The right knee is in [varus] alignment. Range of motion from [0-115] degrees. Knee is stable to varus and valgus as well as AP translation with <5mm. Patient has a [negative] McMurrays. There is [no] pain with patellofemoral compression and [no] crepitus noted. The knee is [tender] to palpation [medially]. X-rays demonstrate joint space loss medially. There is arthritis present. Assessment and Plan Problem List (1) Arthritis of right knee: Status: Acute Plan: Kasandra is a pleasant 69-year-old female with right knee pain and right knee arthritis. We discussed nonoperative and operative options. She is doing well with conservative treatment and is continuing to lose weight. We will get xrays and will see her in 2 months Advanced Care Planning Discussion Advance care planning discussed with:: patient Office Procedures GNS Level of Care Nursing/Assessment Patient Status: Established Patient Nursing Assessment/Reassesment: Medication Reconciliation, Orthostatic Vitals, Update PMH in EMR and Vital Signs Coordination of Care: Complex Care and Chronic Disease 1-5, Education Complex Pt /Fam, Consent,records obtained, informed consent, Results/Orders obtained and Staff clarify orders Established Patient Charge Established Patient Point Assignment: 105 Established Patient Point Charge: EP Level 3 (80-115) MA Intake Visit Data Collection New Patient or Established: Established Patient (seen at [facility] within 3 years) Reason for Visit:: KNEE PAIN HAD FALL Seen by Clinical Staff ONLY (RN/MA): No 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 PCP or OBGYN visit in last 3 months: Yes Hx Now: No Do You Feel Safe at Home: Yes Authorities Contacted: N/A Questionairres Past Medical History Past Medical History Have you ever been diagnosed with any of the following: Neurological Problems Seizures: No Migraine: Yes Cardiology Problems Angina: Yes Coronary Artery Disease: Yes Congestive Heart Failure: No Hypertension: Yes Respiratory Problems Chronic Obstructive Pulmonary Disease (COPD): No Asthma: Yes Bronchitis: Yes Pneumonia: Yes Sleep Apnea: Yes (Pt stated it's not a problem when she sleeps upright) Smoking: No Smoking Exposure: No Stomache/Intestinal Problems Gastroesophageal Reflux Disease: Yes Genital/Urinary Problems Renal Disease: No Reproductive Problems Previous Pregnancies: No Endocrine Problems Diabetes Mellitus Type 1: No Diabetes Mellitus Type 2: Yes Blood Problems Sickle Cell Disease: No Clotting Problems: No Psychologic Problems Depression: No Anxiety: No Other Problems Shingles: Yes Blood Transfusions: No Anesthesia Reactions: No Organ Transplant: No Chicken Pox: Yes Measles: No Mumps: No Cancer: No Subjective Visit Visit for: follow up visit and knee Immunization / Flu Flu Vaccine in the Last 12 Months: No Flu Vaccine Exclusion Criteria: No Exclusion Criteria History of Present Illness Chief complaint: KNEE PAIN NEEDING XRAY Date of injury / onset of symptoms: 02/16/2024 Patient is 68-year-old female even treated for moderate arthritis. The arthritis is of moderate severity and she has tried anti-inflammatories injections. The injections have worked well. The injection has worn off for now. She fell recently and would like to get an xray Personal History Red flag PMH: none BMI Counceling provided: Yes Pain Pain level (0-10): 5 Pain duration: COMES AND GOES Pain location: inside (medial) Pain quality: aching Pain timing: stairs Associated signs & symptoms: none Ambulatory data Ambulatory device: none Treatments Number of previous injections: 2 Improvement with previous injections: Yes Improvement with PT: No Improvement with NSAIDS: yes Review of Systems Review of Systems: All systems negative unless otherwise noted in HPI.
[2024-11-02 13:48] VITALS: BP 127/76; PULSE 87; RESP 20; TEMP 32.8; O2SAT 95; BMI 37.2
--- NOTE | 2024-11-02 13:55 | XR_ITS ---
Examination: Bilateral AP knees single view Right knee PA lateral axial 3 views TECHNIQUE: Bilateral AP knees standing single view Right knee PA standing flexion, standing lateral, axial right knee 3 views total 4 views Date and time: November 02, 2024 1409 hours INDICATIONS: Patient fell 3 weeks ago with injury to the knees, knee pain. FINDINGS: Right knee advanced tricompartment osteoarthritis, including severe narrowing lateral joint space Left knee moderate osteoarthritis lateral joint space No fracture IMPRESSION: Right knee advanced tricompartment osteoarthritis including severe narrowing lateral joint space
== END 2024-11-02 14:30 | disposition home or self-care (01) ==
PROVIDERS: PCP Nurse Practitioner Family; Referring Provider Nurse Practitioner Family; Supervising Provider Orthopaedic Surgery Adult Reconstructive Orthopaedic Surgery; Visit Provider Orthopaedic Surgery Adult Reconstructive Orthopaedic Surgery
DX: M17.11 Unilateral primary osteoarthritis, right knee (principal); M25.561 Pain in right knee; I10 Essential (primary) hypertension; I25.10 Atherosclerotic heart disease of native coronary artery without angina pectoris; G47.30 Sleep apnea, unspecified; K21.9 Gastro-esophageal reflux disease without esophagitis; E11.9 Type 2 diabetes mellitus without complications
CPT/HCPCS: 73564; 99213; G0463

== ENCOUNTER → 2024-12-13 | Outpatient (CLI) | payer MEDICARE, BC, SELFPAY ==
[2024-12-13 10:09] LABS: Misc Send Out* See Sep Rpt
== END | disposition home or self-care (01) ==
LOC: COPL 09:40
PROVIDERS: PCP Family Medicine; Referring Provider Internal Medicine Gastroenterology; Visit Provider Internal Medicine Gastroenterology
DX: K52.9 Noninfective gastroenteritis and colitis, unspecified (principal)
CPT/HCPCS: 82941; 86316

== ENCOUNTER → 2024-12-18 | Outpatient (CLI) | payer MEDICARE, BC, SELFPAY ==
[2024-12-18 16:51] LABS: Misc Send Out* See Sep Rpt
[2024-12-18 16:53] LABS: Misc Send Out* See Sep Rpt
== END | disposition home or self-care (01) ==
LOC: SLDO 16:46
PROVIDERS: Referring Provider Internal Medicine Gastroenterology; Visit Provider Internal Medicine Gastroenterology
DX: K52.9 Noninfective gastroenteritis and colitis, unspecified (principal)
CPT/HCPCS: 83497; 87506

== ENCOUNTER 2025-01-09 08:56 | Outpatient (AMB) | payer MEDICARE, BC, SELFPAY ==
--- NOTE | 2025-01-09 09:21 | ORTHONT_ITS ---
Vital signs 01/09/25 09:22 Height 1.45 m Height Method Stated Weight 72.688 kg Weight Measurement Method Standing Scale BMI 34.5 BP 136/82 H Blood Pressure Source Automatic Cuff Blood Pressure Location Left Upper Arm Position Sitting Respiration 18 Pulse 90 Pulse Source Monitor Temp 97.1 F Temp Source Temporal Artery Scan Pulse Oximetry (%) 96 Oxygen Delivery Method Room Air Med/Allergies Allergies & Medications Allergies erythromycin base Adverse Reaction (Severe, Verified 01/09/25 09:22) Gastrointestinal Upset Medication Reconciliation metoprolol succinate 25 mg tablet,extended release 24 hr (Toprol XL) 25 mg PO QDAY ##0 01/08/15 [History Confirmed 01/09/25] multivitamin (Tab-A-Roland tablet) 1 tab PO QDAY SUPPLEMENT ##0 11/15/15 [History Confirmed 01/09/25] montelukast 10 mg tablet (Singulair) 10 mg PO HS 06/17/17 [History Confirmed 01/09/25] amlodipine 5 mg-benazepril 40 mg capsule 1 cap PO QDAY 11/11/21 [History Confirmed 01/09/25] atorvastatin 80 mg tablet 1 tab PO HS 11/11/21 [History Confirmed 01/09/25] clopidogrel 75 mg tablet 1 tab PO QDAY 11/11/21 [History Confirmed 01/09/25] Held on 03/05/23. Instructions: Resume on 03/06/23. fluticasone propionate 110 mcg/actuation HFA aerosol inhaler (Flovent HFA) 2 puff inhalation QDAY PRN Wheezing 11/11/21 [History Confirmed 01/09/25] levocetirizine 5 mg tablet 5 mg PO QDAY 11/11/21 [History Confirmed 01/09/25] dapagliflozin propanediol 10 mg tablet (Farxiga) 1 tab PO DAILY 12/09/21 [History Confirmed 01/09/25] metformin 500 mg tablet,extended release 24 hr 1 tab PO TID 12/09/21 [History Confirmed 01/09/25] furosemide 40 mg tablet 40 mg PO QDAY 12/01/22 [History Confirmed 01/09/25] gabapentin 400 mg capsule 400 mg PO TID 12/01/22 [History Confirmed 01/09/25] cyclosporine 0.05 % eye drops in a dropperette (Restasis) 1 drp ophthalmic (eye) BID 03/04/23 [History Confirmed 01/09/25] fluticasone 250 mcg-salmeterol 50 mcg/dose blistr powdr for inhalation (Advair Diskus) 1 inh inhalation BID 03/04/23 [History Confirmed 01/09/25] tramadol 50 mg tablet 50 mg PO BID PRN pain #14 tabs 08/11/23 [Rx Confirmed 01/09/25] ondansetron 4 mg disintegrating tablet 4 mg PO Q8H PRN nausea and vomiting #10 tabs 12/01/23 [Rx Confirmed 01/09/25] Exam Exam Patient is in no acute distress and is cooperative with the examination today. Breathing is nonlabored. Patient has a normal mood and affect. Bilateral extremities were evaluated and demonstrates sensation intact to light touch. Palpable pedal pulses are present. No significant edema is present. Bilateral hips were examined. The patient has no pain with log roll of the hips. Internal rotation to 30 degrees and external rotation to 30 degrees is painless. Negative FADIR. Left knee was examined today. The left knee is in reasonable alignment. Range of motion from 0-120 degrees. Knee is stable to varus and valgus as well as AP translation with <5mm. Patient has a negative McMurrays. There is no pain with patellofemoral compression and no crepitus noted. The knee is nontender to palpation. The right knee was also examined. The right knee is in [varus] alignment. Range of motion from [0-115] degrees. Knee is stable to varus and valgus as well as AP translation with <5mm. Patient has a [negative] McMurrays. There is [no] pain with patellofemoral compression and [no] crepitus noted. The knee is [tender] to palpation [medially]. X-rays demonstrate joint space loss medially. There is arthritis present. Assessment and Plan Problem List (1) Arthritis of right knee: Status: Acute Plan: Kasandra is a pleasant 69-year-old female with right knee pain and right knee arthritis. We discussed nonoperative and operative options. She is doing well with conservative treatment and is continuing to lose weight. Recommend knee cortisone injection as patient would like to proceed with conservative treatment at this time. The risks and benefits of the procedure were reviewed with the patient and patient gave verbal consent to continue with the procedure. Procedure: performed by Dr. Leahy Using sterile technique the Right knee was thoroughly prepped with alcohol, and approximately 1 cc of Depo-Medrol 80mg/mL and 4 cc of 0.2% ropivacaine was injected without resistance into the medial tibial femoral joint space. The patient tolerated the procedure. Advanced Care Planning Discussion Advance care planning discussed with:: patient Office Procedures GNS Level of Care Nursing/Assessment Patient Status: Established Patient Nursing Assessment/Reassesment: Medication Reconciliation, Update PMH in EMR and Vital Signs Coordination of Care: Complex Care and Chronic Disease 1-5, Education Complex Pt/Fam, Consent,records obtained, informed consent, Results/Orders obtained and Staff clarify orders Established Patient Charge Established Patient Point Assignment: 95 Established Patient Point Charge: EP Level 3 (80-115) Surgical Proc/IM SQ injection Minor Surgical Procedure: Yes (KNEE INJECTION) Medication Given Medication Given Medication Given: Yes Documented Dose Given: 1 Route: Infiitration Medication Given Medication Given Medication Given: Yes Documented Dose Given: 4 Route: Infiitration Office Meds methylprednisolone acetate 80 mg/mL suspension for injection Performing Provider: Carlos A Leahy MD Performing Location: [facility] Administered by: Carlos A Leahy MD on 01/09/25 11:47 Dose Route Admin Location Dispensed Lot Number Expiration Date Pack age [facility] [employer] 80 mg intra-articular 1 mL [id number] 10/04/26 [address]-5 [id number] [employer] ropivacaine (PF) 2 mg/mL (0.2 %) injection solution Performing Provider: Carlos A Leahy MD Performing Location: [facility] Administered by: Carlos A Leahy MD on 01/09/25 11:47 Dose Route Admin Location Dispensed Lot Number Expiration Date Pack age [facility] [employer] 20 mL Infiltration 20 mL [id number] 04/06/27 43750-877-28 [id number] [facility] Intake Visit Data Collection New Patient or Established: Established Patient (seen at [facility] within 3 years) Reason for Visit:: XRAY RESULTS R KNEE Seen by Clinical Staff ONLY (RN/MA): No 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 PCP or OBGYN visit in last 3 months: Yes Hx Now: No Do You Feel Safe at Home: Yes Authorities Contacted: N/A Questionairres Past Medical History Past Medical History Have you ever been diagnosed with any of the following: Neurological Problems Seizures: No Migraine: Yes Cardiology Problems Angina: Yes Coronary Artery Disease: Yes Congestive Heart Failure: No Hypertension: Yes Respiratory Problems Chronic Obstructive Pulmonary Disease (COPD): No Asthma: Yes Bronchitis: Yes Pneumonia: Yes Sleep Apnea: Yes (Pt stated it's not a problem when she sleeps upright) Smoking: No Smoking Exposure: No Stomache/Intestinal Problems Gastroesophageal Reflux Disease: Yes Genital/Urinary Problems Renal Disease: No Reproductive Problems Previous Pregnancies: No Endocrine Problems Diabetes Mellitus Type 1: No Diabetes Mellitus Type 2: Yes Blood Problems Sickle Cell Disease: No Clotting Problems: No Psychologic Problems Depression: No Anxiety: No Other Problems Shingles: Yes Blood Transfusions: No Anesthesia Reactions: No Organ Transplant: No Chicken Pox: Yes Measles: No Mumps: No Cancer: No Subjective Visit Visit for: follow up visit, knee and x-rays (RESULTS) Immunization / Flu Flu Vaccine in the Last 12 Months: No Flu Vaccine Exclusion Criteria: No Exclusion Criteria History of Present Illness Chief complaint: KNEE XRAY RESULTS Date of injury / onset of symptoms: 02/16/2024 Patient is 68-year-old female even treated for moderate arthritis. The arthritis is of moderate severity and she has tried anti-inflammatories injections. The injections have worked well. The injection has worn off for now. She fell recently. She just came back from a cruise Personal History Red flag PMH: none BMI Counceling provided: Yes Pain Pain level (0-10): 5 Pain duration: COMES AND GOES Pain location: inside (medial) Pain quality: aching Pain timing: stairs Associated signs & symptoms: none Ambulatory data Ambulatory device: none Treatments Number of previous injections: 2 Improvement with previous injections: Yes Improvement with PT: No Improvement with NSAIDS: yes Review of Systems Review of Systems: All systems negative unless otherwise noted in HPI.
[2025-01-09 09:22] VITALS: BP 136/82; PULSE 90; RESP 18; TEMP 36.2; O2SAT 96; BMI 34.5
== END 2025-01-09 09:42 | disposition home or self-care (01) ==
PROVIDERS: PCP Nurse Practitioner Family; Referring Provider Nurse Practitioner Family; Supervising Provider Orthopaedic Surgery Adult Reconstructive Orthopaedic Surgery; Visit Provider Orthopaedic Surgery Adult Reconstructive Orthopaedic Surgery
DX: M17.11 Unilateral primary osteoarthritis, right knee (principal); M25.561 Pain in right knee; I10 Essential (primary) hypertension; E11.9 Type 2 diabetes mellitus without complications; Z79.84 Long term (current) use of oral hypoglycemic drugs
CPT/HCPCS: 20610; 99213; J1010; J2795; G0463

== ENCOUNTER → 2025-02-08 | Outpatient (CLI) | payer MEDICARE, BC, SELFPAY ==
--- NOTE | 2025-02-08 09:48 | XR_ITS ---
EXAMINATION: AP knees bilateral single view TECHNIQUE: Standing AP bilateral knees single view Date and time: February 08, 2025, 0959 hours INDICATIONS: Patient fell 3 weeks ago with injury to both knees, bilateral knee pain. FINDINGS: Prominent osteopenia No acute fracture Moderate to advanced osteoarthritis medial lateral joint spaces IMPRESSION: No acute fractures
--- NOTE | 2025-02-08 09:48 | XR_ITS ---
Examination: Knee bilateral, 7 views Technique: Knee AP, lateral, oblique each knee, bilateral axial knees single view total 7 views Date and time of exam: February,, 0957 hours INDICATIONS: Patient fell 3 weeks ago with injury to both knees, bilateral knee pain. FINDINGS: Severe osteopenia No acute knee fractures Moderate to advanced bilateral tricompartment osteoarthritis No patellar dislocation IMPRESSION: No acute fractures Moderate to advanced bilateral tricompartment osteoarthritis
--- NOTE | 2025-02-08 09:48 | XR_ITS ---
Examination: Lumbar spine, 5 views Technique: Lumbar spine AP, lateral, coned lateral lower lumbar spine, bilateral obliques 5 views Exam date and time: February 08, 2025, 0957 hours, comparison October 12, 2023 INDICATIONS: Patient fell 3 weeks ago with injury of the lower back, lower back pain. FINDINGS: Severe osteopenia Severe lumbar levoscoliosis, 41 degrees Advanced diffuse facet arthropathy No acute lumbar fracture Mild chronic osteoporotic compressions L2, L1, T12, T11 Prominent lumbar spondylosis Moderate to advanced diffuse lumbar degenerative disc disease IMPRESSION: No acute lumbar fracture Moderate to advanced diffuse lumbar degenerative disc disease
[2025-02-08 11:08] LABS: Misc Send Out* See Sep Rpt
[2025-02-08 12:29] LABS: Basophils # (Auto) 0.1 Thou/mm3 (0.0-0.2); Basophils % (Auto) 1 % (0-2.5); Eosinophils # (Auto) 0.2 Thou/mm3 (0.0-0.5); Eosinophils % (Auto) 3 % (0-10); Hematocrit 41.1 % (36.0-46.0); Hemoglobin 12.9 g/dL (12.0-16.0); Immature Granulocytes Auto 0.03 Thou/mm3 (0.00-0.00); Lymphocytes # (Auto) 1.6 Thou/mm3 (1.0-4.8); Lymphocytes % (Auto) 22 % (10-50); Mean Corpuscular HGB Conc 31.4 g/dl (31.0-37.0); Mean Corpuscular Hemoglobin 28.1 pg (25.0-35.0); Mean Corpuscular Volume 90 fL (80-100); Monocytes # (Auto) 0.7 Thou/mm3 (0.0-0.8); Monocytes % (Auto) 9 % (0-12); Neutrophils # (Auto) 4.7 Thou/mm3 (1.8-7.7); Neutrophils % (Auto) 64 % (37-80); Nucleated Red Blood Cell # 0.00 Thou/mm3 (0.00-0.00); Nucleated Red Blood Cell % 0 /100 WBC (0); Platelet Count 296 Thou/mm3 (140-440); RDW Standard Deviation 47.8 fL (36.4-46.3); Red Blood Count 4.59 Miln/mm3 (4.00-5.20); White Blood Count 7.3 Thou/mm3 (3.6-11.0)
[2025-02-08 12:35] LABS: Glucose Estimated Average 103 mg/dL (80-131); Hemoglobin A1C 5.2 % Hgb (4.8-6.0)
[2025-02-08 12:41] LABS: Alanine Aminotransferase 15 U/L (10-49); Albumin, Serum 4.4 gm/dL (3.4-4.8); Albumin/Globulin Ratio 1.7 (1.2-2.2); Alkaline Phosphatase 57 U/L (46-116); Anion Gap 11 (7-16); Aspartate Amino Transferase 24 U/L (0-34); BUN/Creatinine Ratio 15 Ratio (12-20); Bilirubin,Direct 0.1 mg/dL (0.0-0.3); Bilirubin,Total 0.4 mg/dL (0.3-1.2); Blood Urea Nitrogen 18 mg/dL (9-23); Calcium 9.2 mg/dL (8.3-10.6); Calcium (Corrected) 9.2 mg/dL (8.5-10.1); Carbon Dioxide 23.8 mMol/L (20.0-31.0); Cardiac Risk Estimate 2.5 RATIO (3.7-5.6); Chloride 107 mMol/L (98-107); Cholesterol 123 mg/dL (132-200); Creatinine (Component) 1.2 mg/dL (0.6-1.3); Free T4 (Free Thyroxine) 1.32 ng/dL (0.89-1.76); Globulin 2.6 gm/dL (2.3-3.5); Glucose 83 mg/dL (74-106); HDL Cholesterol 50 mg/dL (40-60); LDL Cholesterol,Calculated 36 mg/dL (0-130); Osmolality,Calculated 284 (275-295); Potassium 4.7 mMol/L (3.4-5.1); Sodium 142 mMol/L (136-145); Thyroid Stimulating Hormone 1.79 uIU/mL (0.55-4.78); Total Protein 7.0 gm/dL (5.7-8.2); Triglycerides 183 mg/dL (30-150); eGFR 49 See Note
[2025-02-08 12:44] LABS: Creatinine MALB Rnd Ur 128 mg/dL (30-125); Microalbumin Creat Ratio 11 mg/gCrea (<30); Microalbumin, Random Urine 14 mg/L (0-300)
== END | disposition home or self-care (01) ==
LOC: SDIM 09:42 → COPL 10:16
PROVIDERS: Internal Medicine Cardiovascular Disease; PCP Family Medicine; Referring Provider Nurse Practitioner Family; Visit Provider Radiology Diagnostic Radiology
DX: M17.0 Bilateral primary osteoarthritis of knee (principal); M51.369 Other intervertebral disc degeneration, lumbar region without mention of lumbar back pain or lower extremity pain; K52.9 Noninfective gastroenteritis and colitis, unspecified; E11.42 Type 2 diabetes mellitus with diabetic polyneuropathy; I10 Essential (primary) hypertension; E78.5 Hyperlipidemia, unspecified
CPT/HCPCS: 36415; 72110; 73564; 73565; 80053; 80061; 82043; 82248; 82570; 82941; 83036; 84439; 84443; 85025; 86316

== ENCOUNTER → 2025-02-13 | Outpatient (CLI) | payer MEDICARE, BC, SELFPAY ==
[2025-02-13 11:07] LABS: Misc Send Out* See Sep Rpt
[2025-02-13 11:09] LABS: Misc Send Out* See Sep Rpt
== END | disposition home or self-care (01) ==
LOC: SLDO 10:43
PROVIDERS: Referring Provider Internal Medicine Gastroenterology; Visit Provider Internal Medicine Gastroenterology
DX: K52.9 Noninfective gastroenteritis and colitis, unspecified (principal)
CPT/HCPCS: 83497; 87506